=== PATIENT | female | born 1965 | race Caucasian/White ===

== ENCOUNTER 2016-10-04 12:27 | Day surgery (SDC) | payer BC ==
[2016-10-04] MEDS ORDERED: BACITRACIN 14 APP/14 GM TUBE TOPICAL ONE (12:54)
[2016-10-04] MEDS ORDERED: LIDOCAINE HCL 1% 20 ML VIAL ONE (12:55)
[2016-10-04] MEDS ORDERED: BUPIVACAINE HCL/PF 0.5% 30 ML VIAL ONE (12:55)
[2016-10-04] MEDS ORDERED: LIDOCAINE HCL 1% 20 ML VIAL SUBCUT ONE ×3 (13:10→14:55)
[2016-10-04] MEDS ORDERED: MIDAZOLAM HCL 2 MG/2 ML SYR IV ONE ×3 (13:10→14:55)
[2016-10-04] MEDS ORDERED: ACETAMINOPHEN 1,000 MG/100 ML VIAL IV SCH ×3 (13:15→14:55)
[2016-10-04] MEDS ORDERED: FAMOTIDINE IN SALINE, ISO-OSM 20 MG/50 ML PIGGYBACK IV SCH ×2 (13:15→14:55)
[2016-10-04] MEDS ORDERED: ceFAZolin 1 GM/10 ML VIAL ONE (13:22)
[2016-10-04] MEDS ORDERED: MIDAZOLAM HCL 2 MG/2 ML VIAL ONE (13:22)
[2016-10-04] MEDS ORDERED: FENTANYL 100 MCG/2 ML VIAL ONE (13:28)
[2016-10-04] MEDS ORDERED: LACTATED RINGERS 1,000 ML IV SCH ×4 (14:00→15:00)
[2016-10-04] MEDS ORDERED: KETOROLAC TROMETHAMINE 30 MG/ML VIAL ONE (14:40)
[2016-10-04 14:55] VITALS: TEMP 97.7
[2016-10-04] MEDS ORDERED: MORPHINE SULFATE 10 MG/ML SYR IV PRN (14:55)
[2016-10-04] MEDS ORDERED: FENTANYL 100 MCG/2 ML VIAL IV PRN (14:55)
[2016-10-04] MEDS ORDERED: HYDROmorphone HCL 1 MG/ML SYR IV PRN (14:55)
[2016-10-04] MEDS ORDERED: ONDANSETRON HCL 4 MG/2 ML VIAL IV PRN (14:55)
[2016-10-04 15:26] VITALS: RESP 11
[2016-10-04 15:36] VITALS: BP 124/75; PULSE 56; O2SAT 94
--- NOTE | 2016-10-05 04:49 | OPERATIVE REPORT ---
DATE OF SURGERY: 10/04/16 SURGEON: Efren Barger DPM ANESTHESIA: Local with monitored anesthesia care. PREOPERATIVE DIAGNOSIS: Hallux abductovalgus with bunion, right foot. POSTOPERATIVE DIAGNOSIS: Hallux abductovalgus with bunion, right foot. PROCEDURE PERFORMED: Alfonso-Carroll bunionectomy, right foot. HEMOSTASIS: Pneumatic ankle tourniquet. ESTIMATED BLOOD LOSS: Minimal. PROCEDURE IN DETAIL: Under mild sedation, the patient was escorted into the operating room and placed on the operating table in a supine position. A pneumatic ankle tourniquet was then placed about the patients right ankle. Following IV sedation local anesthesia was obtained about the right first ray utilizing 20 mL of a 1:1 mixture of 1% lidocaine plain and 0.5% Marcaine plain. The right foot was then scrubbed, prepped and draped in the usual aseptic manner. An Esmarch bandage was utilized to exsanguinate the patients right foot, and a pneumatic ankle tourniquet was inflated. Attention was then directed to the dorsomedial aspect of the first metatarsophalangeal joint where a 4-cm linear incision was made. The incision was deepened through the subcutaneous tissues, with care being taken to retract all vital neural and vascular structures. All bleeders were cauterized as necessary. At this time a linear longitudinal capsulotomy was performed over the dorsomedial aspect of the capsule surrounding the first metatarsophalangeal joint. The periosteal and capsular structures were then reflected medially and laterally, thus exposing the first metatarsophalangeal joint at the operative site. Next, utilizing the sagittal bone saw, the medial prominence was resected from the first metatarsal head and passed from the operative field. Attention was then directed to the extensor hallucis brevis tendon which was tenectomized. Dissection was then continued down into the first intersection to the lateral sesamoid which was freed of its soft tissue attachments proximally, laterally and distally. The conjoined tendon of the adductor hallucis was then transected at its attachment to the base of the proximal phalanx. Attention was then redirected to the medial aspect of the first metatarsal head for osteotomy cuts. The apex of the osteotomy pointed distally with arms pointing proximal dorsally and proximal plantarly. Upon completion of the osteotomy, the capital fragment was shifted laterally approximately 3-mm and held temporarily with a K-wire. Next, utilizing standard AO principles and techniques, a 2.9 x 18 mm cortical bone screw was inserted across the osteotomy site with excellent compression noted. The K-wire was then removed. The wound was flushed with copious amounts of sterile normal saline. Attention was then directed to medial aspect of the proximal phalanx where a base wedge osteotomy was created. Upon removal of the wedge of bone the osteotomy was closed allowing the right great toe to adduct until more rectus alignment. A staple was inserted with arms on each side of the osteotomy with excellent compression noted. Again, the wound was flushed with copious amounts of sterile normal saline. The periosteal and capsular structures were then reapproximated and coapted utilizing 2-0 Vicryl suture. Subcuticular tissues were reapproximated and coapted utilizing 3-0 Vicryl suture, and the skin was reapproximated and closed with 4-0 nylon with horizontal mattress and simple interrupted suture technique. Upon completion of the procedure the wound was dressed with Betadine-soaked Adaptic and covered with a sterile compressive dressing consisting of 4x4s and Luis. The pneumatic ankle tourniquet was then deflated and a prompt hyperemic response was noted to all digits of the right foot. An Nirmal wrap stockinette and postoperative shoe were then applied. The patient tolerated the procedure and anesthesia well. She was transferred to the recovery room with vital signs stable and vascular status intact to all toes of the right foot. Following a period of postoperative monitoring, the patient will be discharged home on the following written and oral postoperative instructions. 1. Keep dressings dry and intact. 2. Avoid excessive ambulation. 3. Ice and elevate right foot when at rest. 4. Wear surgical shoe at all times when ambulating. 5. Contact Dr. Barger for all postoperative followup care and if any problems arise. 6. Prescriptions were written for Elizabeth for pain. AUGUSTUS
--- NOTE | 2016-10-14 17:11 | PREOPERATIVE H&P ---
History of Present Illness (Efren Barger DPM; 10/02/2016 12:09 PM) The patient is a 51 year old female. Pre-op for Alfonso-Carroll bunionectomy R foot. Allergies (Brit Metcalf M.A.; 10/02/2016 11:40 AM) No Known Drug [id number]/2017 Social History (Brit Metcalf M.A.; 10/02/2016 11:41 AM) Tobacco Use Never smoker. Alcohol Use None. Medication History (Brit Metcalf M.A.; 10/02/2016 11:43 AM) Opana ER (10MG Tab 12HR Deter, 1 tablet Oral daily) Active. (10/02/2016. Pt has not taken times one week. Trying to wean off it and stay off it.) CeleXA (20MG Tablet, 1 Oral daily) Active. Gabapentin (600MG Tablet, 600mgs Oral three times daily) Active. Spironolactone (50MG Tablet, 1 tablet Oral two times daily) Active. Medications Reconciled Vitals (Brit Metcalf M.A.; 10/02/2016 11:46 AM) 10/02/2016 11:43 AM Weight: 205 lb Height: 66in Body Surface Area: 2.02 m Body Mass Index: 33.09 kg/m Temp.: 97.9F(Temporal) Pulse: 72 (Regular) Resp.: 16 (Unlabored) BP: 124/70 (Sitting, Left Arm, Standard) Physical Exam (Efren Barger DPM; 10/02/2016 1:03 PM) Musculoskeletal Lower Extremity Ankle/Foot: Foot - Evaluation of related systems reveals - well developed, well nourished and in no acute distress, alert and oriented x3 and neurovascularly intact bilaterally. Examination of the right foot reveals - no swelling, edema or erythema of surrounding tissue, normal strength and tone, normal foot and ankle movements and range of motion, no crepitus and no instability. Examination of the left foot reveals - no tenderness to palpation, no pain, no swelling, edema or erythema of surrounding tissue, normal foot and ankle movements and range of motion, no crepitus and no known fractures or deformities. Inspection and Palpation - Sensation is - normal, (R) and normal, ( L). Pulses - 2+, (R) and 2+, (L). Examination reveals - Note: Moderate HAV with bunion R foot. Assessment & Plan (Efren Barger DPM; 10/02/2016 1:12 PM) Acquired hallux valgus of right foot (M20.11) Impression: Pre-op consult for Alfonso-Carroll procedure to correct bunion deformity. Reviewed pre and post op instruction sheets. Rx Opana for pain. Scheduled [facility] appt. Answered questions. Signed by Efren Bagrer DPM (10/02/2016 1:13 PM) [place]
== END 2016-10-04 15:47 | disposition home or self-care (01) ==
LOC: SDS 12:27 → EDBD 12:30 → SDS 15:47
PROVIDERS: ATTEND Podiatrist Foot & Ankle Surgery
DX: M20.11 Hallux valgus (acquired), right foot (principal)
CPT/HCPCS: J0690; J1885; J2250